=== PATIENT | female | born 1995 | race Caucasian/White ===

== ENCOUNTER 2021-12-04 06:03 | Inpatient (IN) | payer BC ==
[2021-12-04] MEDS ORDERED: LIDOCAINE 1% (PF) 10 MG/ML (30 ML SDV) SQ PRN (06:16)
[2021-12-04] MEDS ORDERED: CARBOPROST TROMETHAMINE 250 MCG/ML 1 ML AMP IM PRN (06:16)
[2021-12-04] MEDS ORDERED: OXYTOCIN 10 UNIT/ML 1 ML VIAL IM PRN (06:16)
[2021-12-04] MEDS ORDERED: TERBUTALINE 1 MG/ML VIAL SQ PRN (06:16)
[2021-12-04] MEDS ORDERED: METHYLERGONOVINE 0.2 MG/ML 1 ML AMP IM PRN (06:16)
[2021-12-04] MEDS: LACTATED RINGERS 1,000 ML IV SCH ×2 (06:38→12:52)
[2021-12-04] MEDS: OXYTOCIN 30 UNITS/500 ML NS 30 UNIT in SALINE 1 500ML.BAG IV SCH (06:40)
[2021-12-04 06:51] LABS: Basophils # (A) 0.1 k/uL (0-0.2); Basophils % (A) 1 %; Eosinophils # (A) 0.1 k/uL (0-0.7); Eosinophils % (A) 1 %; Lymphocytes # (A) 2.1 k/uL (1.0-4.8); Lymphocytes % (A) 21 %; MCH 31.2 pg (25.0-35.0); MCHC 34.2 g/dL (31.0-37.0); MCV 91.1 fL (80.0-100.0); Mean Platelet Volume 7.7; Monocytes # (A) 0.5 k/uL (0-1.0); Monocytes % (A) 5 %; Neutrophils % (A) 70 %; Platelet Count 161 k/uL (150-450); RBC 4.18 m/uL (3.80-5.40); RDW 14.1 % (11.5-15.5)
[2021-12-04 10:45] LABS: Amorphous Sediment,Urine Few /hpf; Appearance,Urine Cloudy (Clear); Bacteria,Urine Occasional /hpf; Bilirubin,Urine Negative (Negative); Blood,Urine Negative (Negative); Color,Urine Yellow; Glucose,Urine (UA) Negative (Negative); Hyaline Casts,Urine 1 /lpf (0-2); Ketones,Urine Negative (Negative); Leukocyte Esterase,Urine Negative (Negative); Mucus,Urine Occasional /hpf; Nitrite,Urine Negative (Negative); PH, Urine 6.5 (5.0-8.0); Protein,Urine Trace (Negative); RBC,Urine 1 /hpf (0-5); Specific Gravity,Urine 1.015 (1.001-1.035); Squamous Epithelial Cell,Urine 2 /hpf (0-4); Urobilinogen,Urine <2.0 mg/dL (<2.0); WBC,Urine 3 /hpf (0-5)
[2021-12-04 10:47] LABS: Creatinine,Urine Random 76.7 mg/dL; Protein/Creatinine Ratio,Urine 0.378
[2021-12-04 10:57] LABS: ALT 14 U/L (4-34); AST 22 U/L (14-36); African American GFR (CKD) >90 (>60 ml/min/1.73 sqM); Blood Urea Nitrogen 9 mg/dL (7-17); LDH 436 U/L (313-618); Non-African American GFR(CKD) >90 (>60 ml/min/1.73 sqM); Uric Acid 4.7 mg/dL (3.7-7.4)
[2021-12-04] MEDS ORDERED: BUTORPHANOL 1 MG/ML 1 ML VIAL IV PRN (16:35)
--- NOTE | 2021-12-04 17:52 | P.HPOB ---
History of Present Illness H&P Date: 12/04/21 Chief Complaint: IUP @ 40 4/7 weeks This is a 26 yo at 40 4/7 weeks that presents for induction of labor secondary to postdates. Patient is been receiving routine care which has been essentially uncomplicated. Patient has a due date of 11/30 based on last menstrual period and consistent with ultrasound. Patient did have a positive COVID-19 infection of July 2021. On bloodwork this patient is a blood type of A+, rubella status immune, RPR is nonreactive, B surface antigen negative, HIV is negative. Group beta strep cultures negative on 11/04. Review of Systems Constitutional: Denies chills, Denies fatigue, Denies fever Ears, nose, mouth and throat: Denies headache Cardiovascular: Reports leg edema Respiratory: Denies dyspnea Gastrointestinal: Denies nausea, Denies vomiting Genitourinary: Reports Past Medical History Past Medical History: No Reported History History of Any Multi-Drug Resistant Organisms: None Reported Past Surgical History: No Surgical Hx Reported Past Anesthesia/Blood Transfusion Reactions: No Reported Reaction Past Psychological History: No Psychological Hx Reported Smoking Status: Never smoker Past Alcohol Use History: None Reported Past Drug Use History: None Reported Medications and Allergies Home Medications Medication Instructions Recorded Confirmed Type Aspirin [Adult Low Dose Aspirin EC] 81 mg PO DAILY 12/04/21 12/04/21 History Pnv No.95/Ferrous Fum/Folic AC 1 each PO DAILY 12/04/21 12/04/21 History [ Multivitamin Tablet] Allergies Allergy/AdvReac Type Severity Reaction Status Date / Time No Known Allergies Allergy Verified 12/04/21 06:15 Exam Osteopathic Statement: *. No significant issues noted on an osteopathic structural exam other than those noted in the History and Physical/Consult. Vital Signs Temp Pulse Resp BP Pulse Ox 12/04/21 06:15 97.9 F 79 16 143/86 98 Intake and Output 12/04/21 12/04/21 12/04/21 06:59 14:59 22:59 Other: # Voids 3 Weight 96.162 kg Targeted physical exam is performed in this date and manager scientific a well-nourished well-developed female in no acute distress, breathing is noted to be nonlabored, heart has regular rhythm, abdomen is gravid and appropriate gestational age, on cervical exam she is 3/70/-2 station, heart tones are noted to be category 1 and she is teresita every 4 minutes. Results Result Diagrams: 12/04/21 06:35 12/04/21 10:30 Abnormal Lab Results - Last 24 Hours (Table) 12/04/21 Range/Units 10:10 Urine Appearance Cloudy H (Clear) Urine Protein Trace H (Negative) Amorphous Sediment Few H (None) /hpf Urine Bacteria Occasional H (None) /hpf Urine Mucus Occasional H (None) /hpf Assessment and Plan (1) Post-dates Current Visit: Yes Status: Acute Code(s): O48.0 - POST-TERM SNOMED Code(s): 40036084 Plan: 36-year-old 1 para 0 at 40-4/7 weeks that presents to labor and delivery for a induction of labor secondary to postdates. Patient is admitted to labor and delivery and Pitocin induction of labor is begun per hospital protocol. Options for analgesia are discussed including Stadol and epidural. Anticipate spontaneous vaginal delivery later this afternoon.
[2021-12-04] MEDS ORDERED: SIMETHICONE 80 MG CHEWABLE PO PRN (20:33)
[2021-12-04] MEDS ORDERED: diphenhydrAMINE 50 MG CAP PO PRN (20:33)
[2021-12-04] MEDS ORDERED: HYDROCORTISONE 2.5% RECTAL CREAM 30 GM TUBE RECTAL PRN (20:33)
[2021-12-04] MEDS ORDERED: diphenhydrAMINE 25 MG CAP PO PRN (20:33)
[2021-12-04] MEDS ORDERED: BENZOCAINE/MENTHOL SPRAY 1 GM/SPRAY AEROSOL TOPICAL PRN (20:33)
[2021-12-04] MEDS ORDERED: ZOLPIDEM 5 MG TAB PO PRN (20:33)
[2021-12-04] MEDS ORDERED: LANOLIN CREAM 5 GM TUBE TOPICAL PRN (20:33)
[2021-12-04] MEDS ORDERED: diphenhydrAMINE 50 MG/ML 1 ML VIAL IVP PRN ×2 (20:33)
--- NOTE | 2021-12-04 20:38 | P.PROBDLV ---
Vaginal Delivery Note - . Vaginal Delivery Note: 26-year-old 1 para 0 at 40-4/7 weeks that presented to labor and delivery for induction of labor secondary to postdates. Patient was admitted and Pitocin induction of labor was begun. Once regular contractions were appreciated amniotomy is performed and clear fluid was obtained. Patient became uncomfortable and requested epidural placement. Epidural was placed without difficulty. Patient progressed to complete began pushing and with excellent maternal effort patient had a normal spontaneous vaginal delivery of a viable female infant at 2006, weight of 7 lbs. 13 oz., Apgars of 9 and 9 at one and 5 minutes respectively.. Spontaneous cry was noted at . After a two-minute delayed the umbo cord was doubly clamped and cut. The placenta was delivered spontaneously intact with three-vessel cord being noted. On section the patient's vaginal vault a first-degree vaginal laceration was appreciated this was instilled with lidocaine repaired with 3-0 Rapide. In addition to lateral hymenal tears were appreciated and repaired with a [id number] suture of 0 Vicryl. Hemostasis was appreciated. Uterus is noted be firm and below the umbilicus. All counts were noted to be correct 2. Patient and infant tolerated delivery well and are resting comfortably.
[2021-12-04] MEDS ORDERED: OXYTOCIN 30 UNITS/500 ML NS 30 UNIT in SALINE 1 500ML.BAG IV SCH (20:45)
[2021-12-04] MEDS: IBUPROFEN 600 MG TAB PO SCH (21:32)
[2021-12-05] MEDS: ACETAMINOPHEN TAB 325 MG TAB PO PRN ×3 (01:55→19:56)
[2021-12-05] MEDS: OXYTOCIN 30 UNITS/500 ML NS 30 UNIT in SALINE 1 500ML.BAG IV SCH (01:55)
[2021-12-05] MEDS: LACTATED RINGERS 1,000 ML IV SCH ×3 (03:32→21:50)
[2021-12-05] MEDS: IBUPROFEN 600 MG TAB PO SCH ×3 (05:06→21:48)
[2021-12-05 07:24] LABS: Basophils % (A) 0 %; Eosinophils % (A) 0 %; HCT 26.2 % (34.0-46.0); Lymphocytes # (A) 1.7 k/uL (1.0-4.8); Lymphocytes % (A) 13 %; MCH 33.7 pg (25.0-35.0); MCHC 36.5 g/dL (31.0-37.0); MCV 92.3 fL (80.0-100.0); Mean Platelet Volume 8.2; Monocytes # (A) 0.7 k/uL (0-1.0); Monocytes % (A) 6 %; Neutrophils # (A) 9.9 k/uL (1.3-7.7); Neutrophils % (A) 78 %; Platelet Count 158 k/uL (150-450); RBC 2.84 m/uL (3.80-5.40); WBC 12.8 k/uL (3.8-10.6)
[2021-12-05 07:25] LABS: HGB 9.6 gm/dL (11.4-16.0)
--- NOTE | 2021-12-05 08:38 | P.PNOBGVD ---
Subjective - Subjective Principal diagnosis: day 1 status post normal spontaneous vaginal delivery, postpartu Interval history: 36-year-old G1 now P1 status post normal spontaneous vaginal delivery yesterday evening. Patient initially had passage of large clots a few hours after de livery, Pitocin and Methergine were given uterus firmed and bleeding slowed. Patient feels well this morning she is ambulating and voiding without difficulty. She denies dizziness or shortness of breath. She is tolerating regular diet without nausea or vomiting. Her lochia is moderate this morning. She is breast-feeding. Patient reports: Reports appetite normal, Reports voiding normally, Reports pain well controlled, Reports ambulating normally [place]: doing well, nursing well Objective - Latest Vital Signs Latest vital signs: Vital Signs Temp Pulse Resp BP Pulse Ox 12/05/21 07:33 98.3 F 99 16 123/73 99 12/05/21 05:17 94 14 125/75 98 12/05/21 04:00 98.6 F 104 H 16 136/71 99 12/05/21 03:30 107 H 98 12/05/21 03:00 104 H 18 133/71 99 12/05/21 02:45 109 H 18 134/76 100 12/05/21 02:30 106 H 16 130/72 98 12/05/21 02:18 107 H 16 133/78 12/05/21 02:00 114 H 18 123/72 97 12/05/21 00:00 98.6 F 111 H 16 129/76 97 12/04/21 22:20 98.5 F 111 H 15 131/74 99 12/04/21 21:50 98.7 F 110 H 16 133/72 98 12/04/21 21:20 98.7 F 102 H 17 131/86 96 12/04/21 21:05 98.7 F 105 H 18 139/86 12/04/21 20:50 105 H 17 130/78 12/04/21 20:35 96 17 137/86 12/04/21 20:20 98.0 F 104 H 16 148/74 Intake and Output 12/04/21 12/05/21 12/05/21 22:59 06:59 14:59 Intake Total 480 38.5 Output Total 677 450 Balance -197 -411.5 Intake: Intake, IV Titration 38.5 Amount Oxytocin 30 Units/500 ml 38.5 Ns 30 unit In Saline 1 500ml.bag @ Per Protocol IV .Q0M [facility] Rx#:[id number] Oral 480 Output: Output, Quantitative 677 450 Blood Loss Other: # Voids 1 1 1 # Bowel Movements 0 - Exam Extremities: Present: normal, edema Abdomen: Present: normal appearance, soft Uterus: Present: normal, firm - Labs Labs: Abnormal Lab Results - Last 24 Hours (Table) 12/04/21 12/05/21 Range/Units 10:10 06:38 WBC 12.8 H (3.8-10.6) k/uL RBC 2.84 L (3.80-5.40) m/uL Hgb 9.6 L D (11.4-16.0) gm/dL Hct 26.2 L (34.0-46.0) % Neutrophils # 9.9 H (1.3-7.7) k/uL Urine Appearance Cloudy H (Clear) Urine Protein Trace H (Negative) Amorphous Sediment Few H (None) /hpf Urine Bacteria Occasional H (None) /hpf Urine Mucus Occasional H (None) /hpf Assessment and Plan (1) Post-dates Current Visit: Yes Status: Acute Code(s): O48.0 - POST-TERM SNOMED Code(s): 70691580 (2) Status post vaginal delivery Current Visit: Yes Status: Acute Code(s): KNG3548 - SNOMED Code(s): 853486845 (3) Obstetric vaginal laceration with first degree perineal laceration Current Visit: Yes Status: Acute Code(s): O70.0 - FIRST DEGREE PERINEAL LACERATION DURING DELIVERY SNOMED Code(s): 157743167 Plan: 26-year-old G1 now P1 status post normal spontaneous vaginal delivery. Patient is doing well . We will encourage increased ambulation, beauty sales consultant see patient regarding breast-feeding issues. Anticipate discharge home tomorrow morning.
[2021-12-05] MEDS ORDERED: PRENATAL VIT-IRON-FOLIC ACID 1 EACH CAP PO SCH (09:00)
[2021-12-05] MEDS: SENNOSIDES-DOCUSATE SODIUM 1 EACH TAB PO SCH ×2 (09:06→19:55)
[2021-12-06 01:08] VITALS: RESP 16
[2021-12-06] MEDS: IBUPROFEN 600 MG TAB PO SCH ×3 (08:02→15:31)
--- NOTE | 2021-12-06 08:43 | P.DS ---
Providers Date of admission: 12/04/21 06:03 Expected date of discharge: 12/06/21 Attending physician: Roselyn Figueroa Primary care physician: Stated None - Discharge Diagnosis(es) (1) Post-dates Current Visit: Yes Status: Acute (2) Status post vaginal delivery Current Visit: Yes Status: Acute (3) Obstetric vaginal laceration with first degree perineal laceration Current Visit: Yes Status: Acute Hospital Course: This is a 26-year-old 1 now para 1 that presented to labor and delivery on 12/04 for induction of labor secondary to postdates. Patient had been receiving routine care which has been essentially uncomplicated. Patient was admitted to labor and delivery and Pitocin induction of labor was begun. Once regular contractions were appreciated patient consented to amniotomy. Patient did quickly become uncomfortable after amniotomy was performed and a question epidural. Epidural was placed without difficulty by the anesthesia department. Patient progressed to complete began pushing and had a normal spontaneous vaginal delivery of a viable female at 2006, weight of 7 lbs. 13 oz. Patient has done well . She is ambulating and voiding without difficulty, she is tolerating a regular diet without nausea or vomiting and she sees her pain is well-controlled. Patient Condition at Discharge: Good Plan - Discharge Summary New Discharge Prescriptions: No Action Pnv No.95/Ferrous Fum/Folic AC [ Multivitamin Tablet] 1 each PO DAILY Aspirin [Adult Low Dose Aspirin EC] 81 mg PO DAILY Discharge Medication List Aspirin [Adult Low Dose Aspirin EC] 81 mg PO DAILY 12/04/21 [History] Pnv No.95/Ferrous Fum/Folic AC [ Multivitamin Tablet] 1 each PO DAILY 12/04/21 [History] Follow up Appointment(s)/Referral(s): Roselyn Figueroa DO [Doctor of Osteopathic Medicine] - 4 Weeks Patient Instructions/Handouts: Vaginal Delivery (GEN), Vaginal Delivery (DC) Discharge Disposition: HOME SELF-CARE
[2021-12-06] MEDS: SENNOSIDES-DOCUSATE SODIUM 1 EACH TAB PO SCH (08:55)
[2021-12-06 09:30] VITALS: BP 124/77; PULSE 103; TEMP 97.9
== END 2021-12-06 15:45 | disposition home or self-care (01) | DRG 807 ==
LOC: 4FBP 06:03
PROVIDERS: ADMIT Obstetrics & Gynecology Obstetrics; ATTEND Obstetrics & Gynecology Obstetrics
PROC: 10E0XZZ Delivery of Products of Conception, External Approach (ICD-10-PCS; principal; 2021-12-04)
PROC: 0HQ9XZZ Repair Perineum Skin, External Approach (ICD-10-PCS; 2021-12-04)
DX: O48.0 Post-term pregnancy (principal); Z37.0 Single live birth; O70.0 First degree perineal laceration during delivery; Z3A.40 40 weeks gestation of pregnancy; Z79.82 Long term (current) use of aspirin; Z86.16 Personal history of COVID-19
CPT/HCPCS: 81001; 82565; 82570; 83615; 84156; 84450; 84460; 84520; 84550; 85025; 86850; 86900; 86901